=== PATIENT | female | born 1980 | race Caucasian/White ===

== ENCOUNTER → 2018-11-08 | Outpatient (CLI) | payer BC ==
--- NOTE | 2018-11-08 12:20 | MM ---
Reason for exam: screening (asymptomatic). Baseline mammogram. History: Patient is nulliparous. Taking hormonal contraceptives for 8 years. Physical Findings: Nurse did not find any significant physical abnormalities on exam. MG Screening Mammo w CAD Bilateral CC, MLO, and XCCL view(s) were taken. The breast tissue is heterogeneously dense. This may lower the sensitivity of mammography. There are benign appearing round calcifications in the right breast posterior middle position. These results were verbally communicated with the patient and result sheet given to the patient on 11/08/18. ASSESSMENT: Benign, BI-RAD 2 RECOMMENDATION: Routine screening mammogram of both breasts at age 42.
== END | disposition home or self-care (01) ==
LOC: RADMAMWWP 10:58
PROVIDERS: ATTEND Obstetrics & Gynecology
DX: Z12.31 Encounter for screening mammogram for malignant neoplasm of breast (principal)
CPT/HCPCS: 77067

== ENCOUNTER → 2019-04-11 | Outpatient (CLI) | payer BC ==
--- NOTE | 2019-04-11 14:55 | MR ---
EXAMINATION TYPE: MR brain wo con DATE OF EXAM: 04/11/2019 COMPARISON: 04/19/2015 HISTORY: Migraines CONTRAST: Performed utilizing 0 mL intravenous Gadavist gadolinium contrast. TECHNIQUE: Multiplanar, multiecho imaging on a 3.0 Janie magnet is performed through the brain. Stud y is performed within 24 hours of arrival to the hospital. The craniovertebral junction is normal. The pituitary is normal. Normal vascular flow voids are wit hin the visualized intracranial cerebral vasculature. The left vertebral artery is dominant. Optic ch iasm as visualized appears normal. Diffusion-weighted imaging is performed. No abnormal hyperintensity is present to suggest an acute i ntracranial infarct or acute ischemic change. There are scattered punctate areas of hyperintensity on T2 and Inversion Recovery weighted sequences which are non-specific but can be related to microvascular ischemic changes. These appear to be withi n the frontal lobes bilaterally with five in the right frontal lobe and one in the left frontal lobe. These are stable in appearance number and location from the comparison. Ventricles and sulci are appropriate for the patient age. IMPRESSIONS: 1. Punctate white matter changes within the frontal lobes is stable from comparison 2014
== END | disposition home or self-care (01) ==
LOC: RADMRIMAIN 10:45
PROVIDERS: ATTEND Family Medicine
DX: R90.89 Other abnormal findings on diagnostic imaging of central nervous system (principal)
CPT/HCPCS: 70551

== ENCOUNTER → 2021-03-29 | Outpatient (CLI) | payer BC ==
--- NOTE | 2021-03-30 15:57 | US ---
EXAMINATION TYPE: US thyroid st tissue head/neck DATE OF EXAM: 03/29/2021 COMPARISON: US 04/07/2016 CLINICAL HISTORY: E04.2 goiter. GLAND SIZE: Right Lobe: 4.2 x 1.2 x 1.3 cm Overall Parenchyma: heterogenous Left Lobe: 3.8 x 0.9 x 1.4 cm Overall Parenchyma: heterogeneous Isthmus Thickness: 0.2 cm NODULES RIGHT: # of nodules measured on right: 2 1. 0.8 X 0.5 x 0.7 cm, mid , solid or almost completely solid, hypoechoic nodule, which is wider th an tall, with smooth margins, without echogenic foci. Prior size: No previous 2. 0.6 X 0.3 x 0.6 cm, upper mid, solid or almost completely solid, hypoechoic nodule, which is wid er than tall, with smooth margins, without echogenic foci. Prior size: 0.6 x 0.3 x 0.9 cm LEFT: # of nodules measured on left: 2 1. 0.9 X 0.4 x 1.0 cm, upper mid, solid or almost completely solid, hypoechoic nodule, which is wid er than tall, with smooth margins, without echogenic foci. Prior size: 1.0 x 0.4 x 0.6 cm 2. 0.7 X 0.4 x 0.6 cm, mid , solid or almost completely solid, hypoechoic nodule, which is wider t borrero tall, with smooth margins, with echogenic foci. Prior size: 0.5 x 0.5 x 0.7 cm ISTHMUS: # of nodules measured in the isthmus: 0 Bilateral neck scanned, no evidence of lymphadenopathy. IMPRESSION: Moderately suspicious nodule left lobe thyroid. Follow-up exam in one year is recommended. 2017 ACR TI-RADS LEVEL: TR-RADS 4 - Moderately Suspicious: Follow if > 1 cm, FNA if > 1.5 cm *Highest TI-RADS level nodule reported
== END | disposition home or self-care (01) ==
LOC: RADUSWWP 16:45
PROVIDERS: ATTEND Internal Medicine
DX: E04.2 Nontoxic multinodular goiter (principal)
CPT/HCPCS: 76536

== ENCOUNTER → 2021-03-29 | Outpatient (CLI) | payer BC ==
--- NOTE | 2021-03-30 08:16 | XR ---
EXAM TYPE: LUMBAR SPINE X RAY SERIES COMPARISON: NONE HISTORY: Pain TECHNIQUE: 4 views are submitted. FINDINGS: Alignment is anatomic. The pedicles are intact. The transverse processes are intact. There is no s pondylolysis or spondylolisthesis. Mild narrowing of the disc space at levels L3-S1. Mild facet arth ropathy L5-S1. IMPRESSION: 1. Mild multilevel degenerative disc disease.
--- NOTE | 2021-03-30 08:19 | XR ---
EXAMINATION TYPE: XR cervical spine comp DATE OF EXAM: 03/29/2021 COMPARISON: NONE HISTORY: Pain TECHNIQUE: Four views are submitted. FINDINGS: The odontoid is intact. There are no compression deformities. The prevertebral soft tissue structur es are within normal limits. IMPRESSION: 1. No acute process.
== END | disposition home or self-care (01) ==
LOC: RADXRMAIN 17:01
PROVIDERS: ATTEND Family Medicine
DX: M51.37 Other intervertebral disc degeneration, lumbosacral region (principal)
CPT/HCPCS: 72050; 72110

== ENCOUNTER → 2022-06-23 | Outpatient (CLI) | payer BC ==
--- NOTE | 2022-06-26 08:59 | MM ---
Reason for Exam: Screening (asymptomatic). Last mammogram was performed 3 year(s) and 8 month(s) ago. Patient History: Menarche at age 14. Patient has no children. Premenopausal. Currently using Hormonal Contraceptives, for 8 years. Last menstrual period: 06/21/2022 Risk Values: Debo 5 year model risk: 0.6%. NCI Lifetime model risk: 11.1%. Prior Study Comparison: 11/08/2018 Bilateral Screening Mammogram, [facility]. Tissue Density: The breast tissue is heterogeneously dense. This may lower the sensitivity of mammography. Findings: Analyzed By CAD. There is no suspicious group of microcalcifications or new suspicious mass in either breast. Benign appearing round calcifications within the right breast posterior middle position. No significant change from prior exam. Overall Assessment: Benign, BI-RAD 2 Management: Screening Mammogram of both breasts in 1 year. A clinical breast exam by your physician is recommended on an annual basis and results should be correlated with mammographic findings. Electronically signed and approved by: Junior Griffin D.O.
== END | disposition home or self-care (01) ==
LOC: RADMAMWWP 08:56
PROVIDERS: ATTEND Family Medicine
DX: Z12.31 Encounter for screening mammogram for malignant neoplasm of breast (principal)
CPT/HCPCS: 77067

== ENCOUNTER → 2022-09-22 | Outpatient (CLI) | payer BC ==
--- NOTE | 2022-09-22 10:45 | US ---
EXAMINATION TYPE: US thyroid st tissue head/neck DATE OF EXAM: 09/22/2022 COMPARISON: Prior thyroid ultrasound March 29, 2021 CLINICAL HISTORY: E04.2 NONTOXIC MULTINODULAR GOITER. Follow up thyroid nodules GLAND SIZE: Right Lobe: 3.9 x 1.5 x 1.2 cm Overall Parenchyma: heterogenous Left Lobe: 3.9 x 1.4 x 1.0 cm Overall Parenchyma: heterogeneous Isthmus Thickness: 0.3 cm NODULES RIGHT: # of nodules measured on right: 2 1. 5.0 X 5.0 x 0.6 cm, mid medial, mixed cystic and solid, hypoechoic nodule, which is taller than wide, with ill-defined margins, without echogenic foci. Prior size: 0.8 x 0.5 x 0.7 cm 2. 0.5 X 0.4 x 0.2 cm, mid , , hypoechoic nodule, which is wider than tall, with ill-defined margin s, without echogenic foci. Prior size: 0.6 x 0.3 x 0.6 cm LEFT: # of nodules measured on left: 2 1. 0.9 X 1.0 x 0.4 cm, upper mid, solid or almost completely solid, hypoechoic nodule, which is wid er than tall, with ill-defined margins, without echogenic foci. Prior size: 0.9 x 0.4 x 1.0 cm 2. 0.5 X 0.5 x 0.4 cm, lower mid, solid or almost completely solid, hypoechoic nodule, which is wi bladimir than tall, with ill-defined margins, without echogenic foci. Prior size: 0.7 x 0.4 x 0.6 cm ISTHMUS: # of nodules measured in the isthmus: 0 Bilateral neck scanned, no evidence of lymphadenopathy. Heterogeneous small size thyroid with small bilateral nodules is redemonstrated. IMPRESSION: As above. No significant change from prior.
== END | disposition home or self-care (01) ==
LOC: RADUSWWP 09:44
PROVIDERS: ATTEND Internal Medicine
DX: E04.2 Nontoxic multinodular goiter (principal)
CPT/HCPCS: 76536

== ENCOUNTER → 2023-09-28 | Outpatient (CLI) | payer BC ==
--- NOTE | 2023-10-01 19:31 | MM ---
Reason for Exam: Screening (asymptomatic). Last mammogram was performed 1 year(s) and 3 month(s) ago. Patient History: Menarche at age 14. Patient has no children. Premenopausal. Currently using Hormonal Contraceptives, starting at age 22. Risk Values: Debo 5 year model risk: 0.7%. NCI Lifetime model risk: 11.0%. Prior Study Comparison: 11/08/2018 Bilateral Screening Mammogram, [facility]. 06/23/2022 Bilateral MG screening mammo w CAD, [facility]. Tissue Density: The breast tissue is heterogeneously dense. This may lower the sensitivity of mammography. Findings: Analyzed By CAD. Oil cyst calcification on the right and other regional calcifications remain unchanged on the right. There is no suspicious group of microcalcifications or new suspicious mass in either breast. Overall Assessment: Benign, BI-RAD 2 Management: Screening Mammogram of both breasts in 1 year. . Patient should continue monthly self-breast exams. A clinical breast exam by your physician is recommended on an annual basis. This exam should not preclude additional follow-up of suspicious palpable abnormalities. Note on Debo scores and lifetime risk: 1. A Debo score greater than 3% is considered moderate risk. If this is the case, consider specialist referral to assess eligibility for a risk reducing agent. 2. If overall lifetime risk for the development of breast cancer is 20% or higher, the patient may qualify for future screening with alternating mammogram and breast MRI. Electronically signed and approved by: Lorne Quinonez M.D. Radiologist
== END | disposition home or self-care (01) ==
LOC: RADMAMWWP 08:22
PROVIDERS: ATTEND Family Medicine
DX: Z12.31 Encounter for screening mammogram for malignant neoplasm of breast (principal)
CPT/HCPCS: 77063; 77067

== ENCOUNTER → 2023-11-09 | Outpatient (CLI) | payer BC ==
--- NOTE | 2023-11-09 12:48 | US ---
EXAMINATION TYPE: US thyroid st tissue head/neck DATE OF EXAM: 11/09/2023 COMPARISON: NONE CLINICAL INDICATION: Female, 43 years old with history of E04.2 NONTOXIC MULTINODULAR GOITER; f/u on nodules GLAND SIZE: Right Lobe: 4.2 x 1.3 x 1.4 cm Overall Parenchyma: heterogeneous Left Lobe: 3.4 x 1.3 x 1.1 cm Overall Parenchyma: homogeneous Isthmus Thickness: 0.3 cm NODULES RIGHT: # of nodules measured on right: heterogeneous lobe with most discernable nodule measured 1. 0.8 X 0.7 x 0.7 cm, lower , Prior size: 0.5 x 0.6 x 0.5 cm TIRADS Score: 2 TIRADS Category 2: Composition: Mixed cystic and solid (1 point). Echogenicity: Hyperechoic or isoechoic (1 point). Shape: Wider than tall (0 points). Margin: Smooth (0 points). Echogenic foci: None or large comet-tail artifacts (0 points) Recommendation: No FNA LEFT: # of nodules measured on left: heterogeneous lobe with most discernable nodule measured 1. 0.7 X 0.7 x 0.5 cm, lower , Prior size: 0.5 x 0.4 x 0.5 cm TIRADS Score: 4 TIRADS Category 4: Composition: Solid or almost completely solid (2 points). Echogenicity: Hypoechoic (2 points). Shape: Wider than tall (0 points). Margin: Smooth (0 points). Echogenic foci: None or large comet-tail artifacts (0 points) Recommendation: If >1.5cm: FNA; If >1cm: Follow up at 1,2, 3,5 years ISTHMUS: # of nodules measured in the isthmus: 0 Bilateral neck scanned, no evidence of lymphadenopathy. IMPRESSION: 1. Bilateral thyroid nodules. Attention on follow-up imaging as clinically warranted. 2. Heterogenous thyroid gland correlate with serum markers for thyroiditis.
[2023-11-09 17:37] LABS: T4, Free (Free Thyroxine) 1.52 ng/dL (0.80-1.80)
== END | disposition home or self-care (01) ==
LOC: RADUSWWP 11:16
PROVIDERS: ATTEND Internal Medicine Endocrinology, Diabetes & Metabolism
DX: E07.89 Other specified disorders of thyroid (principal); E04.2 Nontoxic multinodular goiter; E03.9 Hypothyroidism, unspecified
CPT/HCPCS: 36415; 76536; 84439; 84443; 84481

== ENCOUNTER → 2024-03-25 | Outpatient (CLI) | payer BC | END | disposition home or self-care (01) | LOC: LABPRL 08:25 | PROVIDERS: ATTEND Family Medicine | DX: Z00.00 Encounter for general adult medical examination without abnormal findings (principal); E03.9 Hypothyroidism, unspecified; E55.9 Vitamin D deficiency, unspecified; G43.909 Migraine, unspecified, not intractable, without status migrainosus | CPT/HCPCS: 80053; 80061; 82306; 83036; 84439; 84443; 85025 ==

== ENCOUNTER → 2024-12-05 | Outpatient (CLI) | payer BC ==
--- NOTE | 2024-12-05 10:21 | MR ---
INDICATION: Patient age:Female; 44 years old; Reason for study: R51.9 HEADACHE, UNSPECIFIED G43.109 MIGRAINE WITH; [facility]. COMPARISON: MRI brain 04/11/2019. TECHNIQUE: Multi planar, multi sequence imaging was performed through the brain. The patient was then given 5 cc of Gadobutrol intravenously and multi planar, T1 fat-saturation images were obtained. FINDINGS: The davenport-white junctions, ventricular system, basal cisterns appear unremarkable. Age-appropriate cer ebral parenchymal volume. Diffusion-weighted imaging shows no evidence of restricted diffusion to sug gest acute/subacute infarct. Intracranial arterial flow voids are maintained. Midline structures show no abnormality. Redemonstration of bilateral frontal lobe subcortical white matter T2 hyperintense/F LAIR foci from prior MR. Largest is stable within the right frontal lobe measuring up to 4.7 mm. Ther e are 2 new small lesions identified within the left frontal lobe subcortical white matter measuring up to 3 mm. The susceptibility weighted images do not reveal any evidence for micro-hemorrhage. After administration of gadolinium, no abnormal enhancement is seen. The bone marrow signal is within normal limits. The paranasal sinuses and globes are unremarkable. IMPRESSION: 1. No evidence of intracranial mass, acute/subacute infarct, or abnormal enhancement. 2. Redemonstration of mild nonspecific bilateral frontal lobe white matter changes. There are 2 new s mall foci within the left frontal lobe from prior MR. This is again nonspecific with etiologies inclu ding demyelination versus chronic migraine versus small vessel ischemic disease versus other. No enha ncement to suggest active demyelination. [facility], , 12/05/2024 10:19 AM
== END | disposition home or self-care (01) ==
LOC: RADMRIMAIN 08:50
PROVIDERS: ATTEND Psychiatry & Neurology Neurology
DX: G43.109 Migraine with aura, not intractable, without status migrainosus (principal); R90.82 White matter disease, unspecified
CPT/HCPCS: 70553; A9585

== ENCOUNTER → 2024-12-12 | Outpatient (CLI) | payer BC ==
--- NOTE | 2024-12-15 07:31 | MM ---
Reason for Exam: Screening (asymptomatic). Last mammogram was performed 1 year(s) and 2 month(s) ago. Patient History: Menarche at age 14. Patient has no children. Premenopausal. Currently using Hormonal Contraceptives, starting at age 22. Risk Values: Debo 5 year model risk: 0.7%. NCI Lifetime model risk: 10.9%. Prior Study Comparison: 11/08/2018 Bilateral Screening Mammogram, [facility]. 06/23/2022 Bilateral MG screening mammo w CAD, [facility]. 09/28/2023 Bilateral MG 3D screening mammo w/cad, [facility]. Tissue Density: The breasts are extremely dense, which lowers the sensitivity of mammography. Findings: Analyzed By CAD. A few tiny benign-appearing round calcifications bilaterally are present. There is larger benign-appearing dystrophic calcification in the right breast. There is no suspicious new group of microcalcifications or new suspicious mass in either breast. Overall Assessment: Benign, BI-RAD 2 Management: Screening Mammogram of both breasts in 1 year. . Patient should continue monthly self-breast exams. A clinical breast exam by your physician is recommended on an annual basis. This exam should not preclude additional follow-up of suspicious palpable abnormalities. Note on Debo scores and lifetime risk: 1. A Debo score greater than 3% is considered moderate risk. If this is the case, consider specialist referral to assess eligibility for a risk reducing agent. 2. If overall lifetime risk for the development of breast cancer is 20% or higher, the patient may qualify for future screening with alternating mammogram and breast MRI. [facility], , 12/15/2024 7:27 AM. Electronically signed and approved by: Darrell De Leon M.D.
== END | disposition home or self-care (01) ==
LOC: RADMAMWWP 14:43
PROVIDERS: ATTEND Obstetrics & Gynecology
DX: Z12.31 Encounter for screening mammogram for malignant neoplasm of breast (principal); R92.343 Mammographic extreme density, bilateral breasts; R92.1 Mammographic calcification found on diagnostic imaging of breast; Z92.0 Personal history of contraception
CPT/HCPCS: 77063; 77067